=== PATIENT | male | born 1995 | race Caucasian/White ===

== ENCOUNTER → 2021-03-13 | Outpatient (CLI) | payer OTHER ==
[~2021-03-13] MED LIST: BENTYL 20MG TAB20 MG PO; NAPROSYN500 MG PO; TORADOL 10 MG T10 MG PO; Viscous lidocaine2% TOP
[2021-03-13 17:14] LABS: HEMOGLOBIN 15.9 gm/dl (14.0-17.5); RED BLOOD COUNT 4.71 M/UL (4.20-5.50)
[2021-03-13 17:42] LABS: BUN/CREATININE RATIO 6 (0-10)
== END ==
LOC: LAB 15:46
PROVIDERS: Family Medicine
DX: E03.9 Hypothyroidism, unspecified (principal); M10.9 Gout, unspecified
CPT/HCPCS: 80053; 80061; 84436; 84439; 84443; 84550; 85025; 85027

== ENCOUNTER 2021-06-24 04:23 | Emergency (ER) | payer OTHER ==
[~2021-06-24] VITALS: Ht 172.7 cm; Wt 104.3 kg
== END 2021-06-24 06:16 | disposition home or self-care (01) ==
LOC: ER1 04:23
DX: U07.1 COVID-19 (principal); F17.200 Nicotine dependence, unspecified, uncomplicated
CPT/HCPCS: 99283; U0002

== ENCOUNTER 2022-04-20 22:21 | Emergency (ER) | payer OTHER ==
[2022-04-21 05:54] LABS: HEMOGLOBIN 16.4 gm/dl (14.0-17.5); RED BLOOD COUNT 4.94 M/UL (4.20-5.50); WHITE BLOOD COUNT 18.3 K/UL (4.5-11.0)
[2022-04-21 06:32] LABS: BUN/CREATININE RATIO 14 (0-10)
[2022-04-21] MEDS ORDERED: COLCHICINE 0.60.6 MG PO (07:20)
== END 2022-04-21 07:35 | disposition home or self-care (01) ==
LOC: ER1 22:21
PROVIDERS: Family Medicine
DX: M10.9 Gout, unspecified (principal); F17.210 Nicotine dependence, cigarettes, uncomplicated
CPT/HCPCS: 73610; 80053; 84550; 85025; 85652; 86140; 99283; J1885

== ENCOUNTER → 2022-05-02 | Outpatient (CLI) | payer OTHER ==
[~2022-05-02] MED LIST changes: +COLCHICINE 0.60.6 MG PO
== END ==
LOC: RAD 16:59
DX: M54.50 Low back pain, unspecified (principal)
CPT/HCPCS: 72110